=== PATIENT | male | born 1975 | race Caucasian/White ===

== ENCOUNTER 2016-04-13 10:31 | Emergency (ER) | payer SELFPAY ==
[2015-06-18 10:06] VITALS: BMI 24.4
[~2016-04-13 10:31] MED LIST: CELEXA20 MG PO; ELIQUIS5 MG PO; LEVOXYL25 MCG PO; LISINOPRIL10 MG PO; MIRALAX17 GM PO; PRINIVIL20 MG PO; PROTONIX40 MG PO
[2016-04-13 11:10] LABS: BASOPHILS 0.5 % (0.0-2.0); EOSINOPHILS 4.4 % (0-7); HEMATOCRIT 37.3 % (42.0-54.0); HEMOGLOBIN 12.3 g/dL (13.5-17.5); IMMATURE GRANULOCYTES 0.2 % (0-5); LYMPHOCYTES 24.2 % (15-50); MCV 81.8 fL (80.0-100.0); MEAN PLATELET VOLUME 8.8 fL (7.4-10.4); MONOCYTES 11.9 % (2-11); NEUTROPHILS 58.8 % (40-80); PLATELET COUNT 155 10x3/uL (130-400); RBC 4.56 10x6/uL (4.20-6.10); RDW 13.5 % (11.5-14.5); WBC 4.3 10x3/uL (4.8-10.8)
[2016-04-13 11:18] LABS: ALBUMIN 3.9 g/dL (3.4-5.0); ALKALINE PHOSPHATASE 92 U/L (46-116); ALT (SGPT) 34 U/L (10-68); BILIRUBIN - TOTAL 0.33 mg/dL (0.2-1.3); CALC OSMOLALITY 276 mosm/kg (275-300); CALCIUM 9.3 mg/dL (8.5-10.1); CARBON DIOXIDE 27.7 mmol/L (21.0-32.0); CHLORIDE - SERUM 102 mmol/L (98-107); CREATININE - SERUM 1.1 mg/dL (0.6-1.3); GLUCOSE 96 mg/dL (74-106); PROTEIN - SERUM 7.8 g/dL (6.4-8.2); SODIUM 139 mmol/L (136-145); UREA NITROGEN 9 mg/dL (7-18); eGFR NON AFRICAN AMERICAN 78 mL/min (90-120)
== END 2016-04-13 14:12 | disposition home or self-care (01) ==
LOC: D.ER 10:31
PROVIDERS: Emergency Medicine
DX: F41.9 Anxiety disorder, unspecified (principal); Z95.0 Presence of cardiac pacemaker; Z86.73 Personal history of transient ischemic attack (TIA), and cerebral infarction without residual deficits; F17.200 Nicotine dependence, unspecified, uncomplicated